=== PATIENT | male | born 1975 | race African-American/Black ===

== ENCOUNTER 2016-11-25 06:53 | Inpatient (IN) | payer OTHER ==
--- NOTE | ~2016-11-25 | DS ---
Unit #: [id number] #: [id number] Patient: CHRISTOFER YOUNG [id number] [facility] [address] [place] [address] [id number] MR#: [id number] NAME: CHRISTOFER YOUNG ROOM: [facility] Age: 41 Sex: M Admission Date: 11/25/2016 : 1975 Discharge Date: 11/29/2016 Attending Physician: Bandar Lawson M.D. Primary Care Physician: Praveen Rodriguez M.D. DISCHARGE SUMMARY REASON FOR ADMISSION Substance abuse. DIAGNOSTIC STUDIES LABORATORY RESULTS: Remarkable for urine drug screen positive for marijuana. HOSPITAL COURSE The patient was admitted to inpatient unit on 11/25/2016 and discharged on 11/29/2016. The patient was treated on the inpatient unit with expressive therapy, chemical dependency group, medication management, and psychoeducation. The patient responded well with the above modalities of treatment. Subsequently, the patient was discharged with a plan to follow up in outpatient program. DISCHARGE MEDICATIONS Zyprexa 10 mg daily for mood stabilization and psychosis, Vistaril 25 mg t.i.d. for anxiety, and Desyrel 50 mg at bedtime for sleep. DISCHARGE DIAGNOSES Psychiatric: 1. Bipolar mood disorder, not otherwise specified. 2. Cannabis abuse, moderate, F12.20. Secondary diagnosis: Deferred. Medical diagnosis: Asthma. Stressors: Psychosocial stressors. DISCHARGE INSTRUCTIONS The patient is to follow up in outpatient clinic as per social services assistant. CONDITION ON DISCHARGE The patient was pleasant and cooperative. Denied any psychotic symptom or any suicidal ideation. PROGNOSIS Guarded. DIET AND ACTIVITY As tolerated. Unit #: [id number] #: [id number] Patient: CHRISTOFER YOUGN Dictated by... Gregoria Rainey/anh TD: 11/29/2016 21:50 JOB #: [id number] DISCHARGE SUMMARY X Bandar Lawson MD X DISCHARGE SUMMARY
--- NOTE | ~2016-11-25 | PN ---
Unit #: [id number] #: [id number] Patient: SERAFIN YOUNG [id number] [facility] [address] [place] [address] [id number] I MR#: [id number] NAME: SERAFIN YOUNG ROOM: [facility] Age: 41 Sex: M Admission Date: 11/25/2016 : 1975 Attending Physician: Bandar Lawson M.D. Admitting Physician: Bandar Lawson M.D. Primary Care Physician: Gregoria Ramires PROGRESS NOTES DATE OF SERVICE: 11/26/2016 DISCUSSION Mr. Serafin Young is a 41-year-old male, seen on 11/26/2016. The patient's mood was labile, irritable, paranoid. The patient's urine drug screen is positive for marijuana. The patient reported hearing voices. Rapid speech. REVIEW OF SYSTEMS Complete review of systems unremarkable. MENTAL STATUS EXAMINATION General appearance; the patient is dressed casually. Attention span and concentration, poor. Oriented in place and person. Mood and affect, labile. Speech, loud. Thought process, circumstantial, guarded, paranoid. Denied any thoughts of harming self or others. Recent and remote memory, poor. Insight and judgment, poor. DIAGNOSES 1. Mood disorder, not otherwise specified. 2. Cannabis abuse, moderate. ASSESSMENT AND PLAN Advised to start the patient on Zyprexa 10 mg at bedtime and Desyrel 50 mg at bedtime. Continue with the inpatient programing. If needed, consider further adjustment of medication. Dictated by... Gregoria Rainey/anh TD: 11/28/2016 01:47 JOB #: [id number] Unit #: [id number] #: [id number] Patient: SERAFIN YOUNG PROGRESS NOTES X Bandar Lawson MD PROGRESS NOTE
--- NOTE | ~2016-11-25 | PA ---
Unit #: [id number] #: [id number] Patient: SERAFIN YOUNG [id number] [facility] [address] [place] [address] [id number] I MR#: [id number] NAME: SERAFIN YOUNG ROOM: [facility] Age: 41 Sex: M Admission Date: 11/25/2016 : 1975 Date of Assessment: 11/25/2016 Attending Physician: Bandar Lawson M.D. Admitting Physician: Bandar Lawson M.D. Primary Care Physician: Praveen Rodriguez M.D. PSYCHIATRIC ASSESSMENT INFORMANTS The patient's reliability, fair; chart reliability, good. CHIEF COMPLAINT Depression. HISTORY OF PRESENT ILLNESS Mr. Serafin Yonug is a 41-year-old male, seen on . The patient presented with the above-mentioned complaint. The patient is a 41-year-old male, presented with suicidal thoughts. The patient had a weak plan, recent attempt. The patient reported feeling suicidal due to feeling of hopelessness. The patient reported losing custody of his son and reported that he was not seen him in the last several years. The patient reported no current substance abuse; however, the patient's previous assessment reported that extensive history of substance abuse. The patient denied any current homicidal ideation or any psychotic symptom. The patient reports that extensive history of overdosing. Due to the patient's overdosing, the patient needed inpatient admission at this time and was placed on 72-hour hold. PAST PSYCHIATRIC HISTORY Remarkable for history of previous treatment, details unknown at this time. FAMILY HISTORY AND SOCIAL HISTORY Family psychiatric illness is unknown at this time. Social history; no legal problems. No history of any abuse. MEDICAL HISTORY Remarkable for history of asthma. Musculoskeletal; muscle strength and tone, no atrophy or abnormal movement. Gait normal. MEDICATION HISTORY The patient is currently on albuterol, famotidine, Symbicort. ALLERGIES No known drug allergies. SUBSTANCE ABUSE HISTORY The patient started using tobacco, age of onset 23; alcohol, age of onset 12; marijuana, age of onset 12; crack cocaine, age of onset 23. The patient reported losing custody of his son due to substance abuse. REVIEW OF SYSTEMS Unit #: [id number] #: [id number] Patient: SERAFIN YOUNG HEENT: Eyes, clear. Ears, nose, mouth, and throat; clear. CARDIOVASCULAR: Unremarkable. RESPIRATORY: Unremarkable. GI: Unremarkable. : Unremarkable. SKIN: Unremarkable. LYMPH NODE: Unremarkable. NEUROLOGIC: Unremarkable. ENDOCRINE: Unremarkable. HEMATOLOGIC: Unremarkable. ALLERGIC/IMMUNOLOGIC: Unremarkable except as mentioned above. MENTAL STATUS EXAMINATION CONSTITUTIONAL: Measurement of vital signs; temperature 98.2, pulse 81, respirations 21, blood pressure 118/80. Height 5 feet 10 inches, weight is 220 pounds. GENERAL APPEARANCE: The patient dressed casually. The patient did not show any facial deformity. MUSCULOSKELETAL: Please see above. PSYCHIATRIC EXAMINATION Description of speech; regular rate, normal volume, normal articulation, coherent. Description of thought process, goal directed. Description of association, intact. Description of abnormal psychotic thinking; the patient denied any hallucination or delusions, but depression, suicidal ideation, substance abuse. Description of patient's judgment; concerning everyday activity, poor. Social situation, poor. Concerning psychiatric condition, poor. Complete mental status examination; oriented in time, place, and person. Recent and remote memory, fair. Attention span and concentration, fair. Language, able to name object and repeat phrases. Fund of knowledge; aware of current event, passive vocabulary intact. Mood and affect, sad and dysphoric. Insight and judgment, fair to poor. ASSETS AND LIABILITIES Assets; the patient is articulate, able to take care of his ADL. Liability; history of substance abuse, depression. ADMITTING DIAGNOSES Psychiatric: 1. Mood disorder, not otherwise specified, F32.9. 2. Rule out major depressive disorder, F33.2. 3. Cannabis abuse, moderate, F12.20. 4. Cocaine use disorder, moderate, F14.20. 5. Alcohol use disorder, moderate, F10.20. Secondary diagnosis: Deferred. Medical diagnosis: Asthma. Stressors: Psychosocial stressors. PSYCHIATRIC PLAN AND TREATMENT GOAL 1. Advised to admit the patient on the inpatient unit. Provide safe, supportive, and structured environment. 2. Ordered labs; CBC, CMP, UA, UDS, T4, TSH, RPR, and EKG. 3. The patient to continue with Proventil inhaler, trazodone 75 mg q.h.s. p.r.n. for sleep. The patient started on detox protocol and detox Unit #: [id number] #: [id number] Patient: SERAFIN YOUGN monitoring. If needed, consider further adjustment of medication. Treatment goal to attain euthymic mood, gain insight into his problem, and learn coping skills. DISCHARGE PLAN Plan to stabilize the patient and consider followup in outpatient program. ESTIMATED LENGTH OF STAY 5 to 7 days. Dictated by... Gregoria Rainey/anh TD: 11/26/2016 01:22 JOB #: [id number] PSYCHIATRIC ASSESSMENT X Bandar Lawson MD X PSYCHIATRIC ASSESSMENT
--- NOTE | ~2016-11-25 | PN ---
Unit #: [id number] #: [id number] Patient: SERAFIN YOUNG [id number] [facility] [address] [place] [address] [id number] I MR#: [id number] NAME: SERAFIN YOUNG ROOM: [facility] Age: 41 Sex: M Admission Date: 11/25/2016 : 1975 Attending Physician: Bandar Lawson M.D. Admitting Physician: Bandar Lawson M.D. Primary Care Physician: Gregoria Ramires NOTES DATE OF SERVICE: 11/27/2016 DISCUSSION Serafin Young is a 41-year-old male, seen on 11/27/2016. The patient interviewed, chart reviewed, and obtained information from nursing staff. The patient was compliant and cooperative. Mood was sad, dysphoric, anxious. The patient reported voices are better, able to maintain safe behavior. REVIEW OF SYSTEMS Complete review of systems unremarkable. MENTAL STATUS EXAMINATION General appearance; the patient dressed casually. Attention span and concentration, fair. Oriented in place and person. Mood and affect were labile. Speech, rapid. Thought process, circumstantial. The patient denied any thoughts of harming self or others, but still having hallucination. Denied any command hallucination. Recent and remote memory, poor. Insight and judgment, poor. DIAGNOSIS Mood disorder, not otherwise specified. ASSESSMENT AND PLAN Advised to continue with current medication and therapeutic protocol. We will monitor response to medication and make further adjustment of medication. Dictated by... Gregoria Rainey/anh TD: 11/28/2016 03:24 JOB #: [id number] Unit #: [id number] #: [id number] Patient: SERAFIN YOUNG PROGRESS NOTES X Bandar Lawson MD PROGRESS NOTE
--- NOTE | ~2016-11-25 | PN ---
Unit #: [id number] #: [id number] Patient: SERAFIN YOUNG [id number] [facility] [address] [place] [address] [id number] MR#: [id number] NAME: SERAFIN YOUNG ROOM: [facility] Age: 41 Sex: M Admission Date: 11/25/2016 : 1975 Attending Physician: Bandar Lawson M.D. Admitting Physician: Bandar Lawson M.D. Primary Care Physician: Gregoria Ramires PROGRESS NOTES DATE OF SERVICE: 11/28/2016 DISCUSSION Mr. Serafin Young is a 41-year-old male, seen on 11/28/2016. The patient compliant with medication and making progress. Denied any hallucination. Compliant, cooperative, tolerating medication fairly well. No side effects from medication. Attentive and cooperative. REVIEW OF SYSTEMS Complete review of systems unremarkable. MENTAL STATUS EXAMINATION General appearance, the patient dressed casually. Attention span and concentration, fair. Oriented in time, place, and person. Mood and affect were brighter. Speech, regular rate. Thought process, goal directed. The patient denied any thoughts of harming self or others or any psychotic symptom. Recent and remote memory, poor. Insight and judgment, poor. DIAGNOSIS Mood disorder, not otherwise specified. ASSESSMENT/PLAN Advised to continue with current medication and therapeutic protocol. We will monitor response to medication and make further adjustment of medication. Dictated by... Gregoria Rainey/anh TD: 11/28/2016 17:54 JOB #: [id number] Unit #: [id number] #: [id number] Patient: SERAFIN YOUNG PROGRESS NOTES X Bandar Lawson MD PROGRESS NOTE
--- NOTE | ~2016-11-25 | HP ---
Unit #: [id number] #: [id number] Patient: SERAFIN YOUNG [id number] [place] [address] [id number] MR#: [id number] NAME: SERAFIN YOUNG ROOM: [facility] Age: 41 Sex: M Admission Date: 11/25/2016 : 1975 Attending Physician: Bandar Lawson M.D. Admitting Physician: Bandar Lawson M.D. Primary Care Physician: Praveen Rodriguez M.D. HISTORY AND PHYSICAL HISTORY OF PRESENT ILLNESS Serafin is a 41 year old admitted to [facility] because of his drug use. He uses crack cocaine. PAST MEDICAL HISTORY 1. Long history of polysubstance abuse to include cocaine, alcohol and marijuana. 2. COPD. PAST SURGICAL HISTORY Nothing reported. ALLERGIES No known drug allergies. SOCIAL HISTORY Smokes 1/2 pack per day. Drinks alcohol frequently and admits to a history of cocaine use. FAMILY HISTORY Medically noncontributory. REVIEW OF SYSTEMS CONSTITUTIONAL: No fever or chills. HEENT: Denies any sore throat, ear pain or runny nose. CARDIOVASCULAR: Denies chest pain, irregular heart rhythm or palpitations. CHEST: Denies shortness of breath or cough. No hemoptysis. GASTROINTESTINAL: Denies nausea, vomiting, diarrhea or chronic constipation. ENDOCRINE: Denies history of increased thirst or urination. No recent significant weight loss or gain. GENITOURINARY: Denies dysuria, frequency, or hematuria. SKIN: Denies any rashes. HEMATOLOGIC: Denies history of increased bleeding or bruising. MUSCULOSKELETAL: Denies any hot, swollen joints. No generalized muscle pain. NEUROLOGIC: Denies problems with vision or speech. No frequent, severe headaches. No numbness, tingling or weakness in any extremities. Denies loss of bladder or bowel control. CURRENT MEDICATIONS 1. Proventil inhaler p.r.n. 2. Trazodone p.r.n. Unit #: [id number] #: [id number] Patient: SERAFIN YOUNG 3. Milk of Magnesia p.r.n. 4. Maalox p.r.n. 5. Tylenol p.r.n. 6. Nicotine patch 14 mg daily. PHYSICAL EXAMINATION GENERAL: Alert, well-nourished, in no apparent distress. VITAL SIGNS: Blood pressure 118/80, heart rate 80, respirations 16, temperature 98.6. WEIGHT: 220. HEIGHT: 5 feet 10 inches. SKIN: Warm and dry without rash or lesion. HEENT: Normocephalic. TMs not viewed. Oral and nasal passages clear. Conjunctivae clear. PERRLA. EOMs intact. NECK: Supple without lymphadenopathy or thyromegaly. HEART: Regular rate and rhythm without murmur. LUNGS: Clear. ABDOMEN: Soft, nontender. : Not done. EXTREMITIES: No evidence of cyanosis, clubbing or edema. Moves all without focal deficit. NEUROLOGICAL: Grossly within normal limits. Cranial Nerves: II: Visual block are intact. III, IV AND : Extraocular movements are intact. Pupils are equal, round and reactive to light. V: Facial sensation is grossly normal. VII: Facial movements and expression are normal. VIII: Auditory acuity grossly intact. IX, X: Uvula is midline. Phonation is normal. XI: Patient shrugs shoulders and turns head normally. XII: Tongue protrudes in the midline. Sensory and Motor Function: Sensory and motor sensation is grossly normal. Motor: moves all extremities well. Coordination: Gait is normal. Deep Tendon Reflexes: Intact. IMPRESSION Psychiatric admission. RECOMMENDATIONS PSYCHIATRIC: Per psychiatrist. MEDICAL: See no contraindications to participate in facility's activities. MEDICAL PROGNOSIS Good. MEDICAL CONDITION Stable. Dictated by... Dona Dhillon P.A.-C. for Gregoria Iglesias/laurence TD: 11/25/2016 16:49 JOB #: [id number] Unit #: [id number] #: [id number] Patient: SERAFIN YOUNG HISTORY AND PHYSICAL X Dona Dhillon HISTORY AND PHYSICAL
[~2016-11-25 06:53] MED LIST: ALBUTEROL17 GM INH; AMOXICILLIN PO; MEDROL PO; PREDNISONE PO; SYMBICORT INH; ZITHROMAX PO
[2016-11-26 09:34] LABS: BASOPHIL% 0.4 % (0-2.5); EOSINOPHIL# 0.1 X10e3 (0-0.7); EOSINOPHIL% 0.8 % (0.0-7.0); HEMATOCRIT 41.7 % (38.0-50.0); HEMOGLOBIN 13.4 gm/dL (13.0-16.0); LYMPHOCYTE# 1.4 X10e3 (1.0-3.5); LYMPHOCYTE% 21.7 % (17.0-45.0); MEAN CELL VOLUME 92.5 FL (83-96); MEAN CORPUSCULAR HEMOGLOBIN 29.8 PG (28-34); MEAN CORPUSCULAR HGB CONC 32.2 g/dL (30-36); MEAN PLATELET VOLUME 7.9 FL (6.5-11.5); MONOCYTE# 0.7 X10e3 (0-1.0); MONOCYTE% 10.2 % (3.0-12.0); NEUTROPHIL# 4.3 X10e3 (1.5-7.1); NEUTROPHIL% 66.9 % (40-75); PLATELET COUNT 270 X10e3 (140-420); RED BLOOD COUNT 4.51 X10e (3.90-5.60); RED CELL DISTRIBUTION WIDTH 13.1 % (11.0-15.5); WHITE BLOOD COUNT 6.4 X10e3 (4.0-10.5)
[2016-11-26 09:52] LABS: DIFF IND NO
[2016-11-26 10:02] LABS: THYROID STIMULATING HORMONE 0.39 uIU/ml (0.34-5.60)
[2016-11-26 10:11] LABS: ALBUMIN SERUM 3.5 g/dL (3.5-5.0); ALKALINE PHOSPHATASE 54 U/L (32-92); ALT (SGPT) 25 U/L (10-40); AST (SGOT) 22 U/L (10-42); BLOOD UREA NITROGEN 16 mg/dL (9-23); BUN/CREATININE RATIO 17.77; CARBON DIOXIDE 27 mmol/L (22-31); CHLORIDE 104 mmol/L (100-111); CREATININE SERUM 0.9 mg/dL (0.6-1.4); GLOM FILT RATE Estimated ABOVE60 mL/min (>60); GLUCOSE FASTING 93 mg/dL (70-110); POTASSIUM 4.4 mmol/L (3.5-5.1); PROTEIN TOTAL SERUM 6.9 g/dL (6.0-8.3); SODIUM 138 mmol/L (135-145)
[2016-11-26 10:13] LABS: FREE THYROXIN (T4) 0.88 ng/dL (0.58-1.64)
[2016-11-26 12:40] LABS: URINE APPEARANCE CLEAR; URINE BILIRUBIN NEG (NEG); URINE BLOOD NEG (NEG); URINE COLOR YELLOW; URINE GLUCOSE NEG (NEG); URINE KETONE NEG (NEG); URINE LEUKOCYTE ESTERASE NEG (NEG); URINE NITRATE NEG (NEG); URINE PH 6.5 (5-8); URINE PROTEIN NEG (NEG); URINE SPECIFIC GRAVITY 1.021 (1.003-1.035); URINE UROBILINOGEN 0.2 MG/DL (NEG)
[2016-11-26 13:57] LABS: AMPHETAMINE NEG (NEG); BARBITURATES NEG (NEG); BENZODIAZEPINES NEG (NEG); COCAINE NEG (NEG); MARIJUANA POS (NEG); OPIATES NEG (NEG); TRICYCLIC ANTIDEPRESSANTS NEG (NEG); U METHADONE NEG (NEG)
== END 2016-11-29 10:57 | disposition home or self-care (01) | DRG 885 ==
LOC: P1E 06:53
PROVIDERS: Psychiatry & Neurology Psychiatry
PROC: HZ2ZZZZ Detoxification Services for Substance Abuse Treatment (ICD-10-PCS; principal; 2016-11-25)
DX: F33.2 Major depressive disorder, recurrent severe without psychotic features (principal); F14.20 Cocaine dependence, uncomplicated; F39 Unspecified mood [affective] disorder; F12.20 Cannabis dependence, uncomplicated; F10.20 Alcohol dependence, uncomplicated; J45.909 Unspecified asthma, uncomplicated; F17.200 Nicotine dependence, unspecified, uncomplicated
CPT/HCPCS: 80053; 80307; 81003; 84439; 84443; 85025